=== PATIENT | female | born 1970 | race African-American/Black ===

== ENCOUNTER 2019-07-11 06:46 | Inpatient (IN) | payer MEDICAID, OTHER ==
[2019-07-11] MEDS: MAGNESIUM SULFATE 2 GM/50 ML 50 ML IVPB (06:52)
[2019-07-11] MEDS: DEXAMETHASONE 10 MG/ML 1 ML INJ IV (06:52)
[2019-07-11] MEDS: IPRATROPIUM (NEB) 0.5 MG/2.5 ML AMP INH ×2 (06:59→10:19)
[2019-07-11] MEDS: ALBUTEROL 0.5% (NEB) 2.5 MG/0.5 ML AMP INH ×3 (06:59→15:06)
[2019-07-11 10:41] LABS: ADD MAN DIFF? NO
[2019-07-11 10:48] LABS: WHITE BLOOD COUNT 16.9 10^3/ul (4.8-10.8)
[2019-07-11 10:48] LABS: BASOPHIL # 0.1 10^3/ul (0.0-0.1); BASOPHILS % 0.4 % (0.0-2.0); EOSINOPHILS % 0.1 % (0.0-7.0); HEMATOCRIT 42.2 % (37.0-47.0); MEAN CORPUSCULAR HEMOGLOBIN 29.4 pg (29.0-33.0); MEAN CORPUSCULAR HGB CONC 33.2 g/dl (32.0-37.0); MEAN CORPUSCULAR VOLUME 88.5 fl (82.0-101.0); MEAN PLATELET VOLUME 10.4 fl (7.4-10.4); MONOCYTE # 0.3 10^3/ul (0.3-0.9); MONOCYTES % 1.7 % (0.0-11.0); NEUTROPHIL # 15.4 10^3/ul (1.6-7.5); NEUTROPHILS % 91.3 % (39.0-77.0); PLATELET COUNT 214 10^3/UL (140-415); RED BLOOD COUNT 4.77 10^6/ul (4.20-5.40); RED CELL DISTRIBUTION WIDTH 13.4 % (11.5-14.5)
[2019-07-11] MEDS ORDERED: ONDANSETRON 4 MG INJ IV ×2 (11:00→16:30)
[2019-07-11] MEDS ORDERED: ACETAMINOPHEN 325 MG TAB PO ×2 (11:00→16:30)
[2019-07-11 11:13] LABS: ANION GAP 11 (5-13); BLOOD UREA NITROGEN 5 mg/dl (7-20); CALCIUM 9.3 mg/dl (8.4-10.2); CARBON DIOXIDE 24 mmol/L (21-31); CHLORIDE 106 mmol/L (97-110); CREATININE 0.58 mg/dl (0.44-1.00); Estimated GFR > 60 mL/min (>60); GLUCOSE 189 mg/dl (70-220); POTASSIUM 3.2 mmol/L (3.5-5.1); SODIUM 141 mmol/L (135-144)
[2019-07-11] MEDS ORDERED: NACL 0.9% 3 ML SYG IV (16:30)
[2019-07-11] MEDS ORDERED: LORAZEPAM 2 MG INJ IV (16:30)
[2019-07-11] MEDS: LEVOFLOXACIN 750MG/D5W (PMX) 150 ML IVPB ×2 (16:30→19:35)
[2019-07-11] MEDS ORDERED: NITROGLYCERIN (SL) 0.4 MG TAB SL (16:30)
[2019-07-11] MEDS ORDERED: morphine 2 MG INJ IV (16:30)
[2019-07-11] MEDS ORDERED: DOCUSATE SODIUM 100 MG CAP PO (16:30)
[2019-07-11] MEDS ORDERED: hydrALAzine 20 MG INJ IV (16:30)
[2019-07-11] MEDS ORDERED: MAGNESIUM HYDROXIDE 30ML CUP PO (16:30)
[2019-07-11] MEDS ORDERED: ALBUTEROL/IPRATROPIUM (NEB) 3 ML AMP HHN (16:30)
[2019-07-11] MEDS ORDERED: HYDROCODONE/APAP (5/325) TAB PO (16:30)
[2019-07-11] MEDS ORDERED: METHYLPREDNISOLONE 125 MG INJ IV (16:30)
[2019-07-11] MEDS: SOD CHLORIDE 0.45% 1,000 ML IV (17:07)
[2019-07-11] MEDS ORDERED: METHYLPREDNISOLONE 40 MG INJ IV (17:26)
[2019-07-11] MEDS: METHYLPREDNISOLONE 40 MG INJ IV (18:00)
[2019-07-11] MEDS: ALBUTEROL/IPRATROPIUM (NEB) 3 ML AMP HHN ×2 (19:45→23:51)
[2019-07-12] MEDS: METHYLPREDNISOLONE 40 MG INJ IV ×3 (02:03→17:18)
[2019-07-12] MEDS: ALBUTEROL/IPRATROPIUM (NEB) 3 ML AMP HHN ×5 (04:30→21:06)
[2019-07-12 05:12] LABS: ADD MAN DIFF? NO
[2019-07-12 05:15] LABS: WHITE BLOOD COUNT 12.2 10^3/ul (4.8-10.8)
[2019-07-12 05:15] LABS: BASOPHILS % 0.2 % (0.0-2.0); HEMOGLOBIN 13.5 g/dl (12.0-16.0); LYMPHOCYTES # 1.5 10^3/ul (0.8-2.9); LYMPHOCYTES % 12.3 % (15.0-51.0); MEAN CORPUSCULAR HEMOGLOBIN 29.3 pg (29.0-33.0); MEAN CORPUSCULAR HGB CONC 33.8 g/dl (32.0-37.0); MEAN PLATELET VOLUME 10.8 fl (7.4-10.4); MONOCYTE # 0.5 10^3/ul (0.3-0.9); MONOCYTES % 4.4 % (0.0-11.0); NEUTROPHIL # 10.1 10^3/ul (1.6-7.5); NEUTROPHILS % 82.8 % (39.0-77.0); PLATELET COUNT 204 10^3/UL (140-415); RED CELL DISTRIBUTION WIDTH 13.6 % (11.5-14.5)
[2019-07-12 05:27] LABS: HEMOGLOBIN A1C 5.9 % (0-5.9)
[2019-07-12] MEDS: SOD CHLORIDE 0.45% 1,000 ML IV ×2 (05:33→09:40)
[2019-07-12 05:46] LABS: ANION GAP 10 (5-13); BLOOD UREA NITROGEN 8 mg/dl (7-20); CALCIUM 9.8 mg/dl (8.4-10.2); CARBON DIOXIDE 24 mmol/L (21-31); CHLORIDE 105 mmol/L (97-110); CHOL/HDL RATIO 2.5 RATIO; CHOLESTEROL 139 mg/dl (100-200); CREATININE 0.66 mg/dl (0.44-1.00); Estimated GFR > 60 mL/min (>60); GLUCOSE 140 mg/dl (70-220); HDL CHOLESTEROL 54 mg/dl (34-88); LDL CHOLESTEROL,CALCULATED 73 mg/dl; MAGNESIUM 2.3 mg/dl (1.7-2.5); PHOSPHORUS 4.5 mg/dl (2.5-4.9); POTASSIUM 4.4 mmol/L (3.5-5.1); SODIUM 139 mmol/L (135-144); TRIGLYCERIDES 61 mg/dl (0-149)
[2019-07-12 06:11] LABS: THYROID STIMULATING HORMONE 0.233 MIU/L (0.465-4.680)
[2019-07-12] MEDS: LEVOFLOXACIN 750MG/D5W (PMX) 150 ML IVPB (15:48)
[2019-07-13] MEDS: ALBUTEROL/IPRATROPIUM (NEB) 3 ML AMP HHN ×4 (01:23→12:50)
[2019-07-13 05:18] LABS: ADD MAN DIFF? NO
[2019-07-13 05:24] LABS: WHITE BLOOD COUNT 14.9 10^3/ul (4.8-10.8)
[2019-07-13 05:24] LABS: BASOPHILS % 0.1 % (0.0-2.0); HEMATOCRIT 39.4 % (37.0-47.0); HEMOGLOBIN 13.3 g/dl (12.0-16.0); LYMPHOCYTES # 1.6 10^3/ul (0.8-2.9); MEAN CORPUSCULAR HEMOGLOBIN 29.9 pg (29.0-33.0); MEAN CORPUSCULAR HGB CONC 33.8 g/dl (32.0-37.0); MEAN CORPUSCULAR VOLUME 88.5 fl (82.0-101.0); MEAN PLATELET VOLUME 10.8 fl (7.4-10.4); MONOCYTE # 1.4 10^3/ul (0.3-0.9); MONOCYTES % 9.5 % (0.0-11.0); NEUTROPHIL # 11.8 10^3/ul (1.6-7.5); NEUTROPHILS % 78.9 % (39.0-77.0); PLATELET COUNT 204 10^3/UL (140-415); RED BLOOD COUNT 4.45 10^6/ul (4.20-5.40); RED CELL DISTRIBUTION WIDTH 13.7 % (11.5-14.5)
[2019-07-13 05:43] LABS: ANION GAP 8 (5-13); BLOOD UREA NITROGEN 13 mg/dl (7-20); CALCIUM 10.1 mg/dl (8.4-10.2); CARBON DIOXIDE 27 mmol/L (21-31); CHLORIDE 103 mmol/L (97-110); CREATININE 0.79 mg/dl (0.44-1.00); Estimated GFR > 60 mL/min (>60); GLUCOSE 154 mg/dl (70-220); POTASSIUM 4.6 mmol/L (3.5-5.1); SODIUM 138 mmol/L (135-144)
[2019-07-13] MEDS: SOD CHLORIDE 0.45% 1,000 ML IV (06:03)
[2019-07-13] MEDS: predniSONE 20 MG TAB PO (08:54)
[2019-07-13] MEDS: LEVOFLOXACIN 750MG/D5W (PMX) 150 ML IVPB (16:30)
== END 2019-07-13 18:30 | disposition home or self-care (01) | DRG 203 ==
LOC: E/R 06:46 → MS1 10:51
PROVIDERS: Internal Medicine
DX: J45.901 Unspecified asthma with (acute) exacerbation (principal)
CPT/HCPCS: 71045; 80048; 80061; 81025; 83036; 83735; 84100; 84439; 84443; 85025; 94640; 94644; 94645; 94664; 96365; 96366; 96375; 99285-25